=== PATIENT | female | born 1950 | race Caucasian/White ===

== ENCOUNTER 2018-10-26 19:14 | Emergency (ER) | payer MEDICARE ==
[~2018-10-26] VITALS: Ht 176.5 cm; Wt 90.0 kg
[~2018-10-26 19:14] MED LIST: ACCU-CHEK; AMLODIPINE5 MG OR; CIPROFLOXACN500 MG PO; LISINOPRIL5 MG PO; METFORMIN1000 MG PO; METFORMIN500 M1 OR; METFORMIN500 MG PO; METOPROL TAR25 M1 OR; METOPROL TAR25 M1 PO; MUPIROCIN2 % EX; NAPROSYN500 MG OR; PYRIDIUM200 MG PO
[2018-10-26 19:58] LABS: IMMATURE GRANULOCYTES 0.5 % (0.0-5.0); MEAN CELL VOLUME 86.5 fL CALC (80.0-100.0); MEAN CORPUSCULAR HGB CONC 33.5 g/L CALC (32.0-36.0); NEUT# 7.15 thou/uL (2.00-7.15); RED BLOOD COUNT 4.14 mill/uL (4.20-5.60); RED CELL DISTRI WIDTH 12.1 % (11.5-15.5)
[2018-10-26 20:09] LABS: HEMATOCRIT 35.8 % (37.0-47.0)
[2018-10-26 20:30] LABS: ALBUMIN 3.5 g/dL (3.2-5.0); ALKALINE PHOSPHATASE 82 u/l (38-126); ANION GAP 13 (6-22 (CALC)); BUN 21 mg/dL (8-23); BUN/CREATININE RATIO 35 (12-20 (CALC)); CARBON DIOXIDE 25 mmol/l (22-30); CHLORIDE 98 mmol/l (95-108); CREATININE 0.6 mg/dL (0.5-1.0); GFR > 60 ML/MIN (>=60 (CALC)); GFR FOR AFR.AMER. > 60 ML/MIN (>=60 (CALC)); POTASSIUM 4.2 mmol/l (3.5-5.1); SGOT/AST 16 u/l (9-36); SODIUM 132 mmol/l (137-146); TOTAL PROTEIN 6.1 g/dL (6.3-8.2)
[2018-10-26 20:31] LABS: BILIRUBIN, TOTAL 0.6 mg/dL (0.0-1.4)
[2018-10-26 23:11] LABS: URINE BILIRUBIN - DIPSTICK NEGATIVE (NEGATIVE); URINE BLOOD DIPSTICK TRACE-INTACT (NEGATIVE); URINE COLOR YELLOW; URINE GLUCOSE - DIPSTICK >=1000 mg/dL (NEGATIVE); URINE KETONE TRACE mg/dL (NEGATIVE); URINE LEUK ESTERASE NEGATIVE (NEGATIVE); URINE NITRITE - DIPSTICK NEGATIVE (Negative); URINE PH 5.5 (4.5-8.0); URINE PROTEIN - DIPSTICK NEGATIVE (NEG-TRACE); URINE UROBILINOGEN - DIPSTICK 0.2 E.U./dL (0.2)
[2018-10-26 23:16] LABS: BARBITURATES NEGATIVE (NEGATIVE); COCAINE NEGATIVE (NEGATIVE); METHADONE NEGATIVE (NEGATIVE); OXCYCODONE NEGATIVE (NEGATIVE); TETRAHYDROCANNABIONOL NEGATIVE (NEGATIVE); TRICYLIC ANTIDEPRESSANTS NEGATIVE (NEGATIVE)
[2018-10-26] MEDS ORDERED: PHENERGAN25 MG/TAB PO (23:30)
[2018-10-26] MEDS ORDERED: AMOXICILLIN500 MG PO (23:30)
[2018-10-26 23:58] VITALS: BP 110/60
[2018-10-27] MEDS ORDERED: GLIMEPIRIDE2 MG PO (05:13)
--- NOTE | 2018-10-28 10:06 | NUR ---
Blood culture results of 2/2 sets growing gram positive cocci received from lab. Called pt to see how she's doing. Stated she had a fever through last night but not this morning. Explained results of blood culture. Recommended that pt follow up with PCP today or, if unable, come back to the ER to be seen. Pt verbalized understanding.
== END 2018-10-26 23:58 | disposition home or self-care (01) ==
LOC: ED 19:14
PROVIDERS: Family Medicine
DX: A08.4 Viral intestinal infection, unspecified (principal); E11.65 Type 2 diabetes mellitus with hyperglycemia; K04.7 Periapical abscess without sinus; I10 Essential (primary) hypertension; Z79.84 Long term (current) use of oral hypoglycemic drugs; R78.81 Bacteremia; B95.4 Other streptococcus as the cause of diseases classified elsewhere

== ENCOUNTER 2018-10-28 10:27 | Emergency (ER) | payer MEDICARE ==
[~2018-10-28] VITALS: Ht 176.5 cm; Wt 79.5 kg
[~2018-10-28 10:27] MED LIST changes: +AMOXICILLIN500 MG PO; +GLIMEPIRIDE2 MG PO; +PHENERGAN25 MG/TAB PO
[2018-10-28 12:01] LABS: HEMATOCRIT 35.4 % (37.0-47.0); HEMOGLOBIN 11.5 g/dl (12.0-16.0); IMMATURE GRANULOCYTES 1.1 % (0.0-5.0); MEAN CELL VOLUME 88.9 fL CALC (80.0-100.0); MEAN CORPUSCULAR HGB 28.9 pG CALC (26.0-32.0); MEAN CORPUSCULAR HGB CONC 32.5 g/L CALC (32.0-36.0); NEUT# 7.02 thou/uL (2.00-7.15); RED BLOOD COUNT 3.98 mill/uL (4.20-5.60); RED CELL DISTRI WIDTH 12.6 % (11.5-15.5)
[2018-10-28 12:10] LABS: ALBUMIN 3.3 g/dL (3.2-5.0); ALKALINE PHOSPHATASE 70 u/l (38-126); ANION GAP 10 (6-22 (CALC)); BILIRUBIN, TOTAL 0.4 mg/dL (0.0-1.4); BUN 16 mg/dL (8-23); BUN/CREATININE RATIO 27 (12-20 (CALC)); CARBON DIOXIDE 27 mmol/l (22-30); CHLORIDE 104 mmol/l (95-108); CREATININE 0.6 mg/dL (0.5-1.0); GFR > 60 ML/MIN (>=60 (CALC)); GFR FOR AFR.AMER. > 60 ML/MIN (>=60 (CALC)); POTASSIUM 4.4 mmol/l (3.5-5.1); SGOT/AST 27 u/l (9-36); SODIUM 136 mmol/l (137-146); TOTAL PROTEIN 6.2 g/dL (6.3-8.2)
[2018-10-28 14:23] LABS: URINE BLOOD DIPSTICK TRACE-INTACT (NEGATIVE); URINE COLOR YELLOW; URINE GLUCOSE - DIPSTICK 250 mg/dL (NEGATIVE); URINE KETONE 40 mg/dL (NEGATIVE); URINE LEUK ESTERASE TRACE (NEGATIVE); URINE NITRITE - DIPSTICK NEGATIVE (Negative); URINE PROTEIN - DIPSTICK TRACE mg/dL (NEG-TRACE); URINE SPECIFIC GRAVITY >=1.030
[2018-10-28 14:29] LABS: URINE BILIRUBIN - DIPSTICK NEGATIVE (NEGATIVE)
[2018-10-28] MEDS ORDERED: CLEOCIN300 MG PO (14:37)
[2018-10-28 14:45] VITALS: BP 165/77
== END 2018-10-28 14:46 | disposition home or self-care (01) ==
LOC: ED 10:27
PROVIDERS: Emergency Medicine
DX: R78.81 Bacteremia (principal); B96.89 Other specified bacterial agents as the cause of diseases classified elsewhere; S90.121A Contusion of right lesser toe(s) without damage to nail, initial encounter; K05.10 Chronic gingivitis, plaque induced; E11.9 Type 2 diabetes mellitus without complications; I10 Essential (primary) hypertension; W22.8XXA Striking against or struck by other objects, initial encounter

== ENCOUNTER 2019-02-28 | Emergency (ER) | payer MEDICARE ==
[~2019-02-28] MED LIST changes: +CLEOCIN300 MG PO
[2019-02-28] MEDS ORDERED: GLIPIZIDE10 MG PO (23:40)
[2019-02-28] MEDS ORDERED: LISINOPRIL20 MG PO (23:41)
== END 2019-03-01 01:50 | disposition short-term general hospital (02) ==
PROC: 0T9B70Z Drainage of Bladder with Drainage Device, Via Natural or Artificial Opening (ICD-10-PCS; principal; 2019-02-28)
DX: S72.012A Unspecified intracapsular fracture of left femur, initial encounter for closed fracture (principal); E11.9 Type 2 diabetes mellitus without complications; I10 Essential (primary) hypertension; W01.0XXA Fall on same level from slipping, tripping and stumbling without subsequent striking against object, initial encounter; Y92.009 Unspecified place in unspecified non-institutional (private) residence as the place of occurrence of the external cause; Z79.84 Long term (current) use of oral hypoglycemic drugs

== ENCOUNTER 2020-02-21 09:31 | Observation (INO) | payer MEDICARE ==
[~2020-02-21] VITALS: Ht 177.8 cm; Wt 80.3 kg
[~2020-02-21 09:31] MED LIST changes: +GLIPIZIDE10 MG PO; +LISINOPRIL20 MG PO
--- NOTE | 2020-02-21 10:00 | NUR ---
PT TO ROOM VIA WHEELCHAIR, FOR BEDSIDE TRIAGE
[2020-02-21 10:31] LABS: HEMOGLOBIN 12.2 g/dl (12.0-16.0); IMMATURE GRANULOCYTES 0.6 % (0.0-5.0); MEAN CELL VOLUME 89.2 fL CALC (80.0-100.0); MEAN CORPUSCULAR HGB 27.9 pG CALC (26.0-32.0); MEAN CORPUSCULAR HGB CONC 31.3 g/dL CAL (32.0-36.0); NEUT# 6.29 thou/uL (2.00-7.15); RED BLOOD COUNT 4.37 mill/uL (4.20-5.60); RED CELL DISTRI WIDTH 12.2 % (11.5-15.5)
[2020-02-21 10:47] LABS: ALKALINE PHOSPHATASE 98 u/l (38-126); ANION GAP 16 (6-22 (CALC)); BUN 22 mg/dL (8-23); BUN/CREATININE RATIO 29 (12-20 (CALC)); CARBON DIOXIDE 23 mmol/l (22-30); CHLORIDE 101 mmol/l (95-108); CREATININE 0.7 mg/dL (0.5-1.0); GFR > 60 ML/MIN (>=60 (CALC)); GFR FOR AFR.AMER. > 60 ML/MIN (>=60 (CALC)); POTASSIUM 4.5 mmol/l (3.5-5.1); SGOT/AST 16 u/l (9-36); SODIUM 136 mmol/l (137-146); TOTAL PROTEIN 7.4 g/dL (6.3-8.2)
--- NOTE | 2020-02-21 10:52 | NUR ---
PT PROVIDED A BLANKET. IV ABX COMPLETED. CALL LIGHT WITHIN REACH.
[2020-02-21 11:13] LABS: BILIRUBIN, TOTAL 0.7 mg/dL (0.0-1.4)
[2020-02-21] MEDS ORDERED: BACITRACIN3.5 GM EX (11:19)
--- NOTE | 2020-02-21 11:32 | NUR ---
PT RESTING. NO NEEDS OR COMPLAINTS AT THIS TIME. PENDING ADMISSION.
--- NOTE | 2020-02-21 12:45 | NUR ---
PT AMBULATED TO BATHROOM. LUNCH PROVIDED. DAUGHTER AT BEDSIDE. NO NEEDS OR CONCERNS AT THIS TIME.
--- NOTE | 2020-02-21 13:09 | NUR ---
REPORT GIVEN TO KIRILL SPEARS.
--- NOTE | 2020-02-21 13:18 | NUR ---
RECIEVED REPORT FROM BENITA, RN. PT PRESENTED TO [facility] ROOM 270 VIA WHEELCHAIR ACCOMPAINED BY ER STAFF. PT AMBULATED FROM WHEELCHAIR TO BED WITH LITTLE DIFFICULTY. INTRODUCED SELF TO PT AND DISCUSSED POC. PT IS A/O X3. ASSESSMENT AND VITALS COMPLETED. RESPIRATIONS ARE EVEN AND UNLABORED ON ROOM AIR. HEART RHYTHM IS NORMAL. BOWEL SOUNDS ARE ACTIVE IN ALL QUADRANTS, LAST REPORTED BM 02/20/2020. RADIAL AND PEDAL PULSES STRONG. #20G RAC FLUSHED,SITE APPEARS HEALTHY AND PATENT. PT PRESENT WITH WOUND ON LEFT GREAT TOE AND SCABBED OVER WOUND ON SECOND DIGIT OF RIGHT FOOT. PHOTOS OBTAINED. PILLOWS PLACE FOR ELEVATION. PT DENIES OF ANY PAINS OR DISCOMFORTS AT THIS TIME. PT ORIENTED TO ROOM AND CALL LIGHT SYSTEM. PT DENIES OF ANY ALLERGIES. ALLERGY BAND AND FALL RISK BAND APPLIED. ALL SAFETY PRECAUTIONS ARE IN PLACE WITH CALL LIGHT IN REACH. WILL CONTINUE TO MONITOR.
[2020-02-21 13:20] VITALS: BP 146/70
--- NOTE | 2020-02-21 15:38 | NUR ---
PT RESTING IN SEMI FOWLERS POSITION WITH EYES CLOSED. RESPIRATIONS ARE EVEN AND UNLABORED ON ROOM AIR. NO SIGNS OF ANY PAINS OR DISCOMFORTS AT THIS TIME. ALL SAFET PRECAUTIONS ARE IN PLACE WITH CALL LIGHT IN REACH. WILL CONTINUE TO MONITOR
[2020-02-21 19:00] VITALS: BP 105/55
--- NOTE | 2020-02-21 21:48 | NUR ---
PT IN BED WITH EYES OPEN AND ABLE TO MAKE NEEDS KNOWN. SKIN WARM TO TOUCH. mEDICATIONS GIVEN AND TOLERATED WELL. DRESSSING IN PLACE TO LEFT FOOT. COMPLAINED OF PAIN AT 6 ON SCALE OF 1-10 WITH 10 GREATEST AND MEDICATED ORDERED. ALERT AND ORIENTED X 4. CONTINENT OF B/B AND ASSIST X 1 ELICEO BSC WITH NO COMPLICATIONS NOTED. WILL CONTINUE TO OBSERVE
[2020-02-22 04:00] VITALS: BP 99/55
--- NOTE | 2020-02-22 05:09 | NUR ---
PT IN BED WITH EYES CLOSED. NO S/SF DISTRESS NOTED. DRESSING INTACT TO LEFT FOOT WITH NO SHADOWING NOTED. TOLERATING IV ABT WELL. UP WITH STANDBY ASSIST WITH TRANSFERS TO BSC. CALL LIGHT IS WITHIN REACH. WILL CONTINUE TO OBSERVE
[2020-02-22 06:23] LABS: ALKALINE PHOSPHATASE 72 u/l (38-126); BUN 22 mg/dL (8-23); BUN/CREATININE RATIO 33 (12-20 (CALC)); CHLORIDE 107 mmol/l (95-108); CREATININE 0.6 mg/dL (0.5-1.0); GFR > 60 ML/MIN (>=60 (CALC)); GFR FOR AFR.AMER. > 60 ML/MIN (>=60 (CALC)); POTASSIUM 4.1 mmol/l (3.5-5.1); SGOT/AST 13 u/l (9-36); SODIUM 138 mmol/l (137-146)
[2020-02-22 06:26] LABS: ALBUMIN 3.1 g/dL (3.2-5.0); ANION GAP 7 (6-22 (CALC)); BILIRUBIN, TOTAL 0.4 mg/dL (0.0-1.4); CARBON DIOXIDE 28 mmol/l (22-30); TOTAL PROTEIN 5.8 g/dL (6.3-8.2)
[2020-02-22 08:00] VITALS: BP 117/65
--- NOTE | 2020-02-22 09:00 | NUR ---
PT SEEN AWAKE, ALERT, ORIENTED X 3. LUNGS CLEAR, RA. ABDOMEN SOFT, BM YESTERDAY. LEFT FOOT SEEN WITH DRY BLISTER LATERAL TO GREAT TOE, QUARTER SIZED. PT PROVIDED TYLENOL FOR PAIN FOR SAME.
[2020-02-22 09:05] VITALS: BP 117/65
[2020-02-22] MEDS ORDERED: AMOX/K CLAV875 M1 PO (11:23)
[2020-02-22] MEDS ORDERED: GABAPENTIN300 M2 PO (11:34)
[2020-02-22] MEDS ORDERED: ULTRAM50 MG PO (11:36)
[2020-02-22] MEDS ORDERED: PEN NEEDLE1 SC (12:08)
[2020-02-22] MEDS ORDERED: HUMULIN 70/30 K1 INJ SC (12:10)
--- NOTE | 2020-02-22 15:00 | NUR ---
PT HAS BEEN DISCHARGED HOME. DRESSING PLACED TO LEFT FOOT, SOCK APPLIED. PT VERBALIZED UNDERSTANDING OF DC INSTRUCTIONS, TAKEN BY WHEELCHAIR TO [facility] OUTSIDE TO WAIT FOR WHO WAS ON HIS WAY. PT LEAVES [facility] IN STABLE CONDITION.
== END 2020-02-22 14:45 | disposition home or self-care (01) ==
LOC: ED 09:31 → ED-I 11:15 → ED 11:24 → MS2 11:25
PROVIDERS: Nurse Practitioner; Student in an Organized Health Care Education/Training Program; ADMIT Internal Medicine; ATTEND Internal Medicine
DX: T25.232A Burn of second degree of left toe(s) (nail), initial encounter (principal); T31.0 Burns involving less than 10% of body surface; L03.032 Cellulitis of left toe; E11.52 Type 2 diabetes mellitus with diabetic peripheral angiopathy with gangrene; I96 Gangrene, not elsewhere classified; E11.65 Type 2 diabetes mellitus with hyperglycemia; E11.42 Type 2 diabetes mellitus with diabetic polyneuropathy; I10 Essential (primary) hypertension; M19.90 Unspecified osteoarthritis, unspecified site; X19.XXXA Contact with other heat and hot substances, initial encounter; Z79.84 Long term (current) use of oral hypoglycemic drugs; Z20.828 Contact with and (suspected) exposure to other viral communicable diseases

== ENCOUNTER 2020-06-25 23:01 | Observation (INO) | payer MEDICARE ==
[~2020-06-25] VITALS: Ht 177.8 cm; Wt 85.0 kg
[~2020-06-25 23:01] MED LIST changes: +AMOX/K CLAV875 M1 PO; +BACITRACIN3.5 GM EX; +GABAPENTIN300 M2 PO; +HUMULIN 70/30 K1 INJ SC; +PEN NEEDLE1 SC; +ULTRAM50 MG PO
--- NOTE | 2020-06-25 23:10 | NUR ---
PT TO ROOM FOR TRIAGE...BUT HAS TO USE THE BR FIRST...SENT FOR URINE SAMPLE. PT IS ON OUTPT IVT SO SYRUP BLENDER WITH BRING DOWN THE ANTIBIOTICS FOR THAT WHILE SHE IS EVALUATED.
[2020-06-25] MEDS ORDERED: HUMALIN SC (23:38)
[2020-06-25] MEDS ORDERED: MERREM1 GM IV (23:39)
--- NOTE | 2020-06-25 23:40 | NUR ---
PT RESTING STATES THAT SHE HAS A HISTORY OF UTI'S AND HAD SYMPTOMS STARTING YESTERDAY,WITH A FEVER OF 100.0 EARLIER TODAY AND THAT THIS IS WHAT IT FEELF LIKE WHEN SHE HAS UTI'S.
[2020-06-25 23:43] LABS: URINE BILIRUBIN - DIPSTICK NEGATIVE (NEGATIVE); URINE BLOOD DIPSTICK SMALL (NEGATIVE); URINE CLARITY CLEAR; URINE COLOR YELLOW; URINE GLUCOSE - DIPSTICK NEGATIVE (NEGATIVE); URINE KETONE NEGATIVE (NEGATIVE); URINE LEUK ESTERASE LARGE (Negative); URINE NITRITE - DIPSTICK NEGATIVE (Negative); URINE PROTEIN - DIPSTICK TRACE mg/dL (NEG-TRACE); URINE UROBILINOGEN - DIPSTICK 0.2 E.U./dL (0.2)
[2020-06-25 23:50] LABS: URINE EPITHELIAL CELLS MODERATE EPI/hpf (0-FEW); URINE RBC 25-50 RBC/hpf (0-5); URINE WBC >100 WBC/hpf (0-5)
[2020-06-25 23:51] LABS: URINE BACTERIA MODERATE hpf
--- NOTE | 2020-06-26 00:15 | NUR ---
PT AWARE OF URINE RESULTS AND MD PLAN TO POTENTIALLY ADMIT RELATED TO CURRENTLY ON IVT FOR ANOTHER INFECTION NOW UTI ETC...PT AGREEABLE TO ADMISSION MD WILL RE DISCUSS AFTER SPEAKING WITH PRIMARY
[2020-06-26 00:38] LABS: HEMATOCRIT 36.6 % (37.0-47.0); HEMOGLOBIN 11.4 g/dl (12.0-16.0); IMMATURE GRANULOCYTES 0.1 % (0.0-5.0); MEAN CELL VOLUME 88.2 fL CALC (80.0-100.0); MEAN CORPUSCULAR HGB 27.5 pG CALC (26.0-32.0); MEAN CORPUSCULAR HGB CONC 31.1 g/dL CAL (32.0-36.0); RED BLOOD COUNT 4.15 mill/uL (4.20-5.60); RED CELL DISTRI WIDTH 14.1 % (11.5-15.5)
--- NOTE | 2020-06-26 00:40 | NUR ---
IVF STARTED WITH ZOSYN INFUSINF INTO BLAIR SINGLE LUMEN PICC, GOOD ASPIRATE NOTED PRIOR TO INFUSION, DRESSING CD&I. WILL CONTINUE TO MONITIOR
[2020-06-26 01:05] LABS: ALBUMIN 4.1 g/dL (3.2-5.0); ALKALINE PHOSPHATASE 87 u/l (38-126); ANION GAP 11 (6-22 (CALC)); BILIRUBIN, TOTAL 0.6 mg/dL (0.0-1.4); BUN 19 mg/dL (8-23); BUN/CREATININE RATIO 25 (12-20 (CALC)); CARBON DIOXIDE 29 mmol/l (22-30); CHLORIDE 100 mmol/l (95-108); CREATININE 0.8 mg/dL (0.5-1.0); GFR > 60 ML/MIN (>=60 (CALC)); GFR FOR AFR.AMER. > 60 ML/MIN (>=60 (CALC)); POTASSIUM 4.7 mmol/l (3.5-5.1); SGOT/AST 18 u/l (9-36); SODIUM 135 mmol/l (137-146); TOTAL PROTEIN 7.4 g/dL (6.3-8.2)
--- NOTE | 2020-06-26 01:10 | NUR ---
PT RESTING NO NEW COMPLAINTS OFFERED, CALL NESS WITHIN REACH
--- NOTE | 2020-06-26 02:18 | NUR ---
PT UP TO BR TO VOID. ADVISED OF PLAN FOR ADMISSION
--- NOTE | 2020-06-26 02:57 | NUR ---
DRESSING TO LEFT FOOT REMOVED FOR MD INSPECTION WOUND LLOKS HEALTHY WOUND BASE DRY AND DARK SCAB LIKE AREA WITH AOUND BASE SCALY BUT INTACT, PT STATES SHE HAS JUST BEEN PUTTING IODINE AND COVERING IT BID.
--- NOTE | 2020-06-26 04:05 | NUR ---
PT AWARE OF PLANNED ADMISSION AWAITING BED ASSIGMENT FOR PT.
--- NOTE | 2020-06-26 04:33 | NUR ---
REPORT CALLED TO MARTIN
--- NOTE | 2020-06-26 04:34 | NUR ---
REPORT CALLED TO MARTIN ON MED SURG.
--- NOTE | 2020-06-26 04:50 | NUR ---
PT TRANSPORTED TO [facility] VIA WHEELCHAIR WITH ALL BELONGINGS WITH PATIENT
--- NOTE | 2020-06-26 05:29 | NUR ---
PATIENT ARRIVED TO ROOM 278 AT 0450 VIA WC FROM THE ED IN STABLE CONDITION. PATIENT IS ALERT AND ORIENTED X3. ABLE TO MAKE NEEDS KNOWN. RESPIRATIONS EASY ON ROOM AIR. DENIES PAIN. ULCERS NOTED TO BILATERAL FEET. RIGHT SECOND TOE UNSTAGEABLE AND LEFT MEDIAL FOOT, UNSTAGEABLE. BUTTOCKS INTACT. ORIENTED TO ROOM AND CALL LIGHT SYSTEM. NS INFUSING AT 150 ML/HR FROM THE ED. PICTURES TAKEN OF BILATERAL FEET AND ARE IN THE CHART. FALL PRECAUTIONS MAINTAINED. BED IN LOW POSITION. CALL LIGHT WITHIN REACH.
--- NOTE | 2020-06-26 06:55 | NUR ---
REPORT RECEIVED FROM OLIVIARN
[2020-06-26 07:54] VITALS: BP 173/77
--- NOTE | 2020-06-26 07:55 | NUR ---
PT RESTING IN SEMI FOWLERS POSITION,A&O X3;VS OBTAINED AND ASSESSMENT COMPLETED,BP ELEVATED AT 173/77 HR 78.ALL MORNING MEDICATIONS TO BE ADMINISTERED AT THIS TIME; PT DENIES ANY CURRENT PAIN OR DISCOMFORTS,PAIN SCALE AND REPORTING EDUCATED;RESPIRATIONS EVEN AND UNLABORED ON RA,CLEAR LUNG SOUNDS;ABDOMEN SOFT ON PALPATION AND ACTIVE IN ALL 4 QUADRANTS;WEAK PEDAL PULSES;WOUND NOTED TO RIGHT AND LEFT FOOT,CURRENTLY BEING TREATED WITH OUTPT IV THERAPY.PHOTOGRAPHS IN CHART;ENCOURAGED ELEVATION;BLAIR JERRY PICCLINE FLUSHED AND PATENT;ACCUCHECK 169;PT DENIES ANY ADDITIONAL NEEDS AT THIS TIME AND IS ENCOURAGED TO CALL FOR ASSISTANCE IF NEEDED;FALL PRECAUTIONS IN PLACE WITH BED IN THE LOWEST POSITION AND CALL LIGHT IN REACH;WILL CONTINUE TO MONITOR
--- NOTE | 2020-06-26 10:15 | NUR ---
REQUEST FOR RECORDS FAXED TO [facility] PER ORDER BY JUAN CHUNG.
[2020-06-26 10:45] VITALS: BP 163/73
--- NOTE | 2020-06-26 10:45 | NUR ---
BP RE-CHECK 163/73 HR 67
--- NOTE | 2020-06-26 10:54 | NUR ---
AT BEDSIDE DISCUSSING POC.
--- NOTE | 2020-06-26 11:00 | NUR ---
NASAL SWAB OBTAINED FROM RIGHT NARE FOR MRSA SURVEILLANCE SCREEN.SPECIMEN SENT TO LAB AT THIS TIME.
--- NOTE | 2020-06-26 11:30 | NUR ---
PT RESTING IN SEMI FOWLERS POSITION;RESPIRATIONS EVEN AND UNLABORED ON RA;PT DENIES ANY CURRENT PAIN OR DISCOMFORTS;ABX INFUSING TO BLAIR PICCLINE WITH EASE PER ORDER;ACCUCHECK 204;PT DENIES ANY ADDITIONAL NEEDS AND IS ENCOURAGED TO CALL FOR ASSISTANCE IF NEEDED;FALL PRECAUTIONS IN PLACE WITH BED IN THE LOWEST POSITION AND CALL LIGHT IN REACH;WILL CONTINUE TO MONITOR
--- NOTE | 2020-06-26 13:52 | NUR ---
SPOUSE AT BEDSIDE
[2020-06-26 14:50] VITALS: BP 168/71
--- NOTE | 2020-06-26 16:00 | NUR ---
PT RESTING IN SEMI FOWLERS POSITION;RESPIRATIONS EVEN AND UNLABORED ON RA;PT DENIES ANY CURRENT PAIN OR DISCOMFORTS;BLAIR MOYINE PATENT;PT ENCOURAGED TO CALL FOR ASSISTANCE IF NEEDED;FALL PRECAUTIONS REMAIN IN PLACE WITH CALL LIGHT IN REACH;WILL CONTINUE TO MONITOR
--- NOTE | 2020-06-26 18:59 | NUR ---
REPORT FROM ELÍAS ROY. ASSUMED PT CARE.
[2020-06-26 19:42] VITALS: BP 139/76
--- NOTE | 2020-06-26 21:25 | NUR ---
PT NOTED RESTING IN BED. NO APPARENT DISTRESS NOTED. A&OX4. MEDICATED ORDERED AT THIS TIME. PT DENIES ANY PAIN OR DISCOMFORT. BLAIR PICC, DRESSING CDI. DISCUSSED POC AND SAFETY PRECAUTIONS. PT VERBALIZED UNDERSTANDING. DENIES ANY CURRENT WANTS OR NEEDS. DIABETIC SNACK PROVIDED AT THIS TIME. CALL LIGHT WITHIN REACH. WILL CONTINUE TO MONITOR.
--- NOTE | 2020-06-26 23:54 | NUR ---
PT RESTING IN BED WITH EYES CLOSED. NO APPARENT DISTRESS NOTED. RESPIRATIONS EVEN AND UNLABORED. CALL LIGHT WITHIN REACH. WILL CONTINUE TO MONITOR.
--- NOTE | 2020-06-27 03:13 | NUR ---
PT RESTING IN BED WITH EYES CLOSED. NO APPARENT DISTRESS NOTED. RESPIRATIONS EVEN AND UNLABORED. CALL LIGHT WITHIN REACH. WILL CONTINUE TO MONITOR.
[2020-06-27 04:00] VITALS: BP 139/78
[2020-06-27 06:17] LABS: HEMATOCRIT 32.8 % (37.0-47.0); MEAN CELL VOLUME 88.9 fL CALC (80.0-100.0); MEAN CORPUSCULAR HGB 27.1 pG CALC (26.0-32.0); MEAN CORPUSCULAR HGB CONC 30.5 g/dL CAL (32.0-36.0); RED BLOOD COUNT 3.69 mill/uL (4.20-5.60); RED CELL DISTRI WIDTH 13.7 % (11.5-15.5)
[2020-06-27 06:29] LABS: ANION GAP 7 (6-22 (CALC)); BUN 14 mg/dL (8-23); BUN/CREATININE RATIO 24 (12-20 (CALC)); CARBON DIOXIDE 31 mmol/l (22-30); CHLORIDE 104 mmol/l (95-108); CREATININE 0.6 mg/dL (0.5-1.0); GFR > 60 ML/MIN (>=60 (CALC)); GFR FOR AFR.AMER. > 60 ML/MIN (>=60 (CALC)); MAGNESIUM 1.9 mg/dL (1.6-2.3); POTASSIUM 4.4 mmol/l (3.5-5.1); SODIUM 137 mmol/l (137-146)
--- NOTE | 2020-06-27 07:15 | NUR ---
PATIENT LAYING IN BED AT THIS TIME. [employer]INT [employer]PERATIONS DONE SEE INTERVENTIONS. PATIENT DENIES ANY NEEDS OR PAIN AT THIS TIME. WOUNDS ON R FOOT DRY AND NO DRAINAGE NOTED LEFT UPPER ARM SINGLE LUMEN PICC LINE FLUSHED WITH NORMAL SALINE. LUNG ALDANA ARE CLEAR. SIDERAILS ARE UP X 2 CALL LIGHT AND PERSONAL ITMES WITHIN REACH.
[2020-06-27 07:35] VITALS: BP 161/84
[2020-06-27 08:23] VITALS: BP 161/84
[2020-06-27 10:57] LABS: URINE BILIRUBIN - DIPSTICK NEGATIVE (NEGATIVE); URINE BLOOD DIPSTICK TRACE-INTACT (NEGATIVE); URINE COLOR YELLOW; URINE GLUCOSE - DIPSTICK NEGATIVE (NEGATIVE); URINE KETONE NEGATIVE (NEGATIVE); URINE PROTEIN - DIPSTICK NEGATIVE (NEG-TRACE); URINE UROBILINOGEN - DIPSTICK 0.2 E.U./dL (0.2)
[2020-06-27 10:58] LABS: URINE LEUK ESTERASE SMALL (NEGATIVE); URINE NITRITE - DIPSTICK NEGATIVE (Negative)
--- NOTE | 2020-06-27 11:41 | NUR ---
PATIENT RESTING IN BED AT THIS TIME. PATIENT DENIES ANY NEEDS SIDERRAILS ARE UP CALL LIGHT WITHIN REACH.
--- NOTE | 2020-06-27 11:47 | NUR ---
S: DEAN WHITEHEAD is a 70 F who presents with a UTI. She has a history of diabetes, hypertension, osteoarthritis, osteomyelitis, and neuropathy. All medications in patient's chart were reviewed. O: VS: BP 161/84 mmHg, P 66 bpm, RR 21 bpm,T 96.9 F W 85 kg, HT 70 in, Scr= 0.8 (1) mg/dl,CrCl= ml/min A: Urine culture shows growth of mixed gram positive ozzy. (06/25/20) Blood culture is pending. Urine culture is pending. (06/27/20) Nose culture is pending. P: Patient is on Meropenem 1 g IV Q8H. Vancomycin ordered for pharmacy to dose. Start Vancomycin 1,250 mg IV Q12H. Vancomycin trough is drawn before the 4th dose on 06/27/20 @ 23:30. Vancomycin goal trough is between 10-15 mcg/ml. Pharmacy will follow and or advise on antibiotics use as needed.
[2020-06-27] MEDS ORDERED: AMOX/K CLAV875 M1 PO (11:58)
--- NOTE | 2020-06-27 14:07 | NUR ---
PATIENT DC AT THIS TIME. PATIENT VERBALIZES UNDERSTANDING OF D/C INSTRUCTIONS. [facility] PATIENT VERBALIZES UNDERSTANDING OF OUTPATIENT IV THERAPY.
--- NOTE | 2020-06-27 14:20 | NUR ---
Discharge instructions given. Patient verbalizes understanding of same. Discharged in stable condition via Wheelchair to Home with family. All belongings sent with pt. PATIENT LEFT WITH LEFT UPPER PICC LINE INTACT AT THIS TIME FOR OUTPATIENT IV THERAPY. PICC LINE FLUSED PRIOR TO D/C.
== END 2020-06-27 14:20 | disposition home or self-care (01) ==
LOC: ED 23:01 → ED-I 06-26 02:24 → ED 06-26 02:47 → MS2 06-26 02:48
PROVIDERS: Emergency Medicine; Nurse Practitioner; ADMIT Internal Medicine; ATTEND Internal Medicine
DX: N39.0 Urinary tract infection, site not specified (principal); I10 Essential (primary) hypertension; E11.69 Type 2 diabetes mellitus with other specified complication; M86.8X7 Other osteomyelitis, ankle and foot; E11.40 Type 2 diabetes mellitus with diabetic neuropathy, unspecified; Z79.4 Long term (current) use of insulin; Z86.14 Personal history of Methicillin resistant Staphylococcus aureus infection; Z87.440 Personal history of urinary (tract) infections; Z20.822 Contact with and (suspected) exposure to COVID-19; M86.179 Other acute osteomyelitis, unspecified ankle and foot
CPT/HCPCS: G0378; J3370

== ENCOUNTER 2020-09-26 10:34 | Emergency (ER) | payer MEDICARE ==
[~2020-09-26 10:34] MED LIST changes: +HUMALIN SC; +MERREM1 GM IV
[2020-09-26 11:27] LABS: HEMATOCRIT 38.7 % (37.0-47.0); IMMATURE GRANULOCYTES 0.2 % (0.0-5.0); MEAN CORPUSCULAR HGB 27.3 pG CALC (26.0-32.0); NEUT# 7.02 thou/uL (2.00-7.15); RED BLOOD COUNT 4.4 mill/uL (4.20-5.60); RED CELL DISTRI WIDTH 13.7 % (11.5-15.5)
[2020-09-26 11:47] LABS: ALBUMIN 3.8 g/dL (3.2-5.0); ALKALINE PHOSPHATASE 97 u/l (38-126); ANION GAP 12 (6-22 (CALC)); BILIRUBIN, TOTAL 0.4 mg/dL (0.0-1.4); BUN 21 mg/dL (8-23); BUN/CREATININE RATIO 26 (12-20 (CALC)); CARBON DIOXIDE 26 mmol/l (22-30); CHLORIDE 100 mmol/l (95-108); CREATININE 0.8 mg/dL (0.5-1.0); GFR > 60 ML/MIN (>=60 (CALC)); GFR FOR AFR.AMER. > 60 ML/MIN (>=60 (CALC)); LIPASE 24 u/l (23-300); MAGNESIUM 1.8 mg/dL (1.6-2.3); POTASSIUM 4.4 mmol/l (3.5-5.1); SGOT/AST 21 u/l (9-36); SODIUM 133 mmol/l (137-146)
[2020-09-26 14:03] LABS: URINE BILIRUBIN - DIPSTICK NEGATIVE (NEGATIVE); URINE BLOOD DIPSTICK SMALL (NEGATIVE); URINE COLOR YELLOW; URINE GLUCOSE - DIPSTICK >=1000 mg/dL (NEGATIVE); URINE KETONE TRACE mg/dL (NEGATIVE); URINE PROTEIN - DIPSTICK TRACE mg/dL (NEG-TRACE); URINE UROBILINOGEN - DIPSTICK 0.2 E.U./dL (0.2)
[2020-09-26 14:05] LABS: URINE LEUK ESTERASE MODERATE (NEGATIVE); URINE NITRITE - DIPSTICK POSITIVE (Negative)
[2020-09-26 14:18] LABS: URINE BACTERIA MODERATE hpf; URINE SQUAMOUS EPITHELIAL CELL FEW EPI/hpf (0-FEW); URINE WBC >100 WBC/hpf (0-5)
[2020-09-26] MEDS ORDERED: CIPROFLOXACN500 MG PO (14:36)
[2020-09-26 14:59] VITALS: BP 167/86
== END 2020-09-26 15:11 | disposition home or self-care (01) ==
LOC: ED 10:34
PROVIDERS: Emergency Medicine
DX: R19.7 Diarrhea, unspecified (principal); N39.0 Urinary tract infection, site not specified; I10 Essential (primary) hypertension; E11.9 Type 2 diabetes mellitus without complications; Z79.4 Long term (current) use of insulin; Z20.822 Contact with and (suspected) exposure to COVID-19

== ENCOUNTER 2021-01-15 11:36 | Emergency (ER) | payer MEDICARE ==
[~2021-01-15] VITALS: Ht 177.8 cm; Wt 89.4 kg
[2021-01-15 12:37] LABS: URINE BILIRUBIN - DIPSTICK NEGATIVE (NEGATIVE); URINE BLOOD DIPSTICK LARGE (NEGATIVE); URINE COLOR RED; URINE GLUCOSE - DIPSTICK >=1000 mg/dL (NEGATIVE); URINE KETONE 40 mg/dL (NEGATIVE); URINE NITRITE - DIPSTICK POSITIVE (Negative); URINE PROTEIN - DIPSTICK >=300 mg/dL (NEG-TRACE); URINE SPECIFIC GRAVITY 1.015; URINE UROBILINOGEN - DIPSTICK >=8.0 E.U./dL (0.2)
[2021-01-15 12:38] LABS: URINE LEUK ESTERASE MODERATE (NEGATIVE)
[2021-01-15 12:39] LABS: URINE RBC TNTC RBC/hpf (0-5); URINE SQUAMOUS EPITHELIAL CELL FEW EPI/hpf (0-FEW)
[2021-01-15] MEDS ORDERED: OMNI-PAC300 MG PO (12:51)
[2021-01-15 13:47] VITALS: BP 155/78
== END 2021-01-15 13:42 | disposition home or self-care (01) ==
LOC: ED 11:36
PROVIDERS: Family Medicine
DX: N39.0 Urinary tract infection, site not specified (principal); I10 Essential (primary) hypertension; E11.9 Type 2 diabetes mellitus without complications; Z79.4 Long term (current) use of insulin; Z79.02 Long term (current) use of antithrombotics/antiplatelets